=== PATIENT | female | born 2005 | race Two or more races ===

== ENCOUNTER 2023-10-01 19:57 | Emergency (ER) | payer OTHER ==
[~2023-10-01] VITALS: Ht 152.4 cm; Wt 94.9 kg
[2023-10-01 20:45] LABS: Basophils # (auto) 0 10 ^3/uL (0-0.2); Eosinophils # (auto) 0.1 10 ^3/uL (0-0.8); Eosinophils % (auto) 0.6 % (0.0-7.0); Hemoglobin 13.4 g/dL (12.2-16.2); Neutrophils # (auto) 10.4 10 ^3/uL (1.6-8.6)
[2023-10-01 20:47] LABS: Basophils % (auto) 0.3 % (0.0-2.0); Hematocrit 41.6 % (36.0-46.0); Lymphocytes # (auto) 3.2 10 ^3/uL (0.4-5.4); Lymphocytes % (auto) 22.5 % (10.0-50.0); Mean Corpuscular Hemoglobin 26.7 pg (28.0-32.0); Mean Corpuscular Hgb Conc. 32.3 g/dL (32.0-36.0); Mean Corpuscular Volume 82.8 fL (80.0-100.0); Monocytes # (auto) 0.5 10 ^3/uL (0-1.3); Monocytes % (auto) 3.3 % (0.0-12.0); Neutrophils % (auto) 73.3 % (37.0-80.0); Nucleated Red Blood Cells % 0.2 %; Red Blood Cells 5.02 10^6/uL (4.0-5.20); Red Cell Distribution Width 15.5 % (11.8-14.3); White Blood Cell 14.1 10^3/uL (4.4-10.8)
[2023-10-01 21:02] LABS: Alanine Aminotransferase 32 U/L (7-40); Albumin 5.1 g/dL (3.2-4.8); Alkaline Phosphatase 92 U/L (46-116); Anion Gap 9 (5-15); Aspartate Aminotransferase 26 U/L (13-40); BUN/Creatinine Ratio 10.9 (10.0-20.0); Bilirubin, Total 0.4 mg/dL (0.2-1.0); Blood Urea Nitrogen 7 mg/dL (9-23); Calcium 10.4 mg/dL (8.7-10.4); Carbon Dioxide 22 mmol/L (20-30); Chloride 107 mmol/L (98-107); Glucose 112 mg/dL (74-106); Potassium 3.8 mmol/L (3.5-5.1); Sodium 138 mmol/L (136-145); Total Protein 8.1 g/dL (5.7-8.2)
[2023-10-01 21:07] LABS: INR 0.99 (0.9-1.15); Partial Thromboplastin Time 31.9 SEC (24.5-34.5); Prothrombin Time 10.4 sec (9.3-11.8)
[2023-10-02 01:30] VITALS: BP 153/87; PULSE 101; RESP 18; O2SAT 98
[2023-10-02] MEDS: SODIUM CHLORIDE 0.9% 1,000 ML IV ONE (01:34)
== END 2023-10-02 01:33 | disposition home or self-care (01) ==
LOC: ER 19:57
DX: R00.2 Palpitations (principal); R07.89 Other chest pain
CPT/HCPCS: 36415; 71045; 80053; 83735; 83880; 84484; 85025; 85610; 85730; 93005